=== PATIENT | male | born 1960 | race Caucasian/White ===

== ENCOUNTER → 2021-12-05 | Day surgery (SDC) | payer OTHER ==
[~2021-12-05] VITALS: Ht 172.7 cm; Wt 82.2 kg
[~2021-12-05] MED LIST: ATOM60CA7 PO; BUPR-113 PO; BUPR-344 PO; CYCLOPENTOLATE HCL 1% 2 ML OPHTHALMIC SOLUTION ONE; CYCLOPENTOLATE HCL 1% 2 ML OPHTHALMIC SOLUTION OS SCH; KETOROLAC TROMETHAMINE 0.5% 5 ML OPHTHALMIC SOLUTION ONE; KETOROLAC TROMETHAMINE 0.5% 5 ML OPHTHALMIC SOLUTION OS SCH; LAMO100 PO; LURA40TA2 PO; LURA60TA PO; PHENYLEPHRINE HCL 2.5% 2 ML OPHTHALMIC SOLUTION ONE; PHENYLEPHRINE HCL 2.5% 2 ML OPHTHALMIC SOLUTION OS SCH; RINGERS SOLUTION,LACTATED 500 ML IV ONE; TAMS-13 PO; TROPICAMIDE 1% 2 ML OPHTHALMIC SOLUTION ONE; TROPICAMIDE 1% 2 ML OPHTHALMIC SOLUTION OS SCH
== END | disposition still patient (30) ==
LOC: SURGERY 08:05
PROVIDERS: ATTEND Ophthalmology
DX: H26.8 Other specified cataract (principal); Z53.8 Procedure and treatment not carried out for other reasons; Z79.899 Other long term (current) drug therapy
CPT/HCPCS: 93005; C9803; J7120

== ENCOUNTER 2021-12-19 07:09 | Day surgery (SDC) | payer OTHER ==
[~2021-12-19] VITALS: Ht 172.7 cm; Wt 90.9 kg
[~2021-12-19 07:09] MED LIST changes: -BUPR-344 PO; -KETOROLAC TROMETHAMINE 0.5% 5 ML OPHTHALMIC SOLUTION OS SCH; -LURA60TA PO
[2021-12-19] MEDS ORDERED: BALANCED SALT 15 ML OPHTHALMIC IRRIG.SOLN IO ONE (07:10)
[2021-12-19] MEDS ORDERED: SALICYLIC ACID 40% PATCH TP ONE (07:10)
[2021-12-19] MEDS ORDERED: ACETYLCHOLINE CHLORIDE 1 EA INTRAOCULAR SOLUTION KIT IO ONE (07:10)
[2021-12-19] MEDS ORDERED: NEOMYCIN/POLYMYXIN B/DEXAMETH 3.5 GM OPHTHALMIC OINTMENT OD ONE (07:10)
[2021-12-19] MEDS ORDERED: MethylPREDNISolone SOD SUCC 40 MG/ML VIAL IVP ONE (07:10)
[2021-12-19] MEDS ORDERED: POVIDONE-IODINE 5% 30 ML OPHTHALMIC SOLUTION OD ONE (07:10)
[2021-12-19] MEDS ORDERED: EPINEPHrine 1:1,000 [1 MG/ML] VIAL ET ONE (07:10)
[2021-12-19] MEDS ORDERED: LIDOCAINE/PF 1% 2 ML VIAL CAUDAL ONE (07:10)
[2021-12-19] MEDS ORDERED: CHONDR SULF A SOD/HYALURONATE 1.05 ML KIT IO ONE (07:10)
[2021-12-19 07:37] LABS: COVID AG,FIA SOURCE NASOPHARYNGEAL
[2021-12-19] MEDS: CYCLOPENTOLATE HCL 1% 2 ML OPHTHALMIC SOLUTION OS SCH ×3 (08:09→08:23)
[2021-12-19] MEDS: TROPICAMIDE 1% 2 ML OPHTHALMIC SOLUTION OS SCH ×3 (08:09→08:23)
[2021-12-19] MEDS: PHENYLEPHRINE HCL 2.5% 2 ML OPHTHALMIC SOLUTION OS SCH ×3 (08:09→08:23)
[2021-12-19] MEDS: KETOROLAC TROMETHAMINE 0.5% 5 ML OPHTHALMIC SOLUTION OS SCH ×3 (08:10→08:23)
[2021-12-19] MEDS ORDERED: FentaNYL CITRATE PF 100 MCG/2 ML VIAL IVP ONE (12:00)
[2021-12-19] MEDS ORDERED: MIDAZOLAM HCL 2 MG/2 ML VIAL IVP ONE (12:00)
== END 2021-12-19 12:05 | disposition home or self-care (01) ==
LOC: SURGERY 07:09
PROVIDERS: ATTEND Ophthalmology
DX: H25.812 Combined forms of age-related cataract, left eye (principal); H27.112 Subluxation of lens, left eye; F31.9 Bipolar disorder, unspecified; F17.200 Nicotine dependence, unspecified, uncomplicated; Z20.822 Contact with and (suspected) exposure to COVID-19; Z79.899 Other long term (current) drug therapy
CPT/HCPCS: 66982; 87426; C9803; J0171; J3010; J3490; J2250; J2920; Q9967; J7120; V2632